=== PATIENT | female | born 2000 | race Caucasian/White ===

== ENCOUNTER → 2023-05-14 13:48 | Outpatient (CLI) | payer BC, SELFPAY ==
--- NOTE | ~2023-05-14 | US_ITS ---
EXAMINATION: US thyroid DATE: 05/14/2023 14:12 INDICATION: TECHNIQUE: Multiple ultrasound images of the thyroid were obtained. COMPARISON: None. FINDINGS: The right thyroid lobe measures 5.0 x 1.8 x 1.3 cm. The left thyroid lobe measures 5.1 x 1.4 x 1.2 c m. The isthmus measures 0.2 cm. There is normal echotexture and echogenicity throughout the thyroid g land. No discrete nodules identified. Normal vascular flow is present. IMPRESSION: Normal thyroid ultrasound findings. Reviewed, dictated and finalized at location K.
== END ==
PROVIDERS: PCP Family Medicine; Visit Provider Physician Assistant
DX: E04.9 Nontoxic goiter, unspecified (principal)
CPT/HCPCS: 76536

== ENCOUNTER 2023-05-15 18:16 | Emergency (ER) | payer BC, SELFPAY ==
--- NOTE | 2023-05-15 18:20 | ED.EYEPROB ---
HPI - Eye Problem General Chief complaint: Eye Problems Stated complaint: bilateral eye pain Time Seen by Provider: 05/15/23 18:19 Source: patient Mode of arrival: ambulatory Limitations: no limitations History of Present Illness HPI Narrative: Adina is a 23-year-old female patient presenting to the clinic today with complaints of bilateral eye discomfort. She reports she has had some clear drainage coming from bilateral eyes today however when she wakes up the morning the drainage is yellow. Symptoms have been going on for 2 days. She does wear contacts. She has taken her contacts out and now is wearing her glasses. She denies any visual changes but does have photosensitivity. Related Data Home Medications Medication Instructions Recorded Confirmed medroxyprogesterone 400 mg/mL 400 mg IM MONTHLY 06/06/19 05/15/23 intramuscular suspension (Depo-Provera) Allergies Allergy/AdvReac Type Severity Reaction Status Date / Time No Known Allergies Allergy Verified 05/15/23 18:21 Review of Systems Review of Systems: Pertinent positives per HPI. Patient denies any fever, chills, rash, headache, visual changes, dizziness, cough, runny nose, sore throat, shortness of breath, chest pain, palpitations, nausea, vomiting, diarrhea, constipation, abdominal pain, or any urinary issues. FORMERLY [facility], [facility] Past Medical History Medical History ADD (attention deficit disorder) without hyperactivity Insomnia Major depressive disorder, recurrent, moderate Family History Family History Mother Depression Social History Social History Social History: Single Smoking status: Never smoker Second hand tobacco smoke exposure: No Alcohol intake: current Drinks per week: 2 Substance use: current Substance use type: marijuana Lack of Transportation: No Lack of Food: Never True Current Housing: I Have Housing Concerned About Future Housing: No Difficulty Paying Gas/Electric Bills: No Difficulty Paying for Meds: No Currently Unemployed: No Education: Decline to Answer Living arrangements: with family Occupation/Education: student Additional occupation/education comments: Pt also goes to school. Gender identity (if verbalized by the patient): Female Sexual Orientation (if Verbalized by the Patient): Straight or Heterosexual Comments At the time of my signature, I reviewed and agree with the nursing past medical, surgical, social, and family history. There is no relevant family history pertinent to the patient complaint. Exam Narrative: General: Well-developed, well nourished, in no apparent distress Head: Normocephalic, atraumatic Eyes: Pupils equally round and reactive to light bilaterally, EOM intact, sclera and conjunctive injected, watery discharge, bilateral lid swelling left greater than right Ears: TMs intact and clear, ear canals clear, no drainage, grossly hearing normal. Nose: Nares patent, no discharge, no inflammation, no sinus tenderness. Mouth: Oropharynx without lesions or masses, good dentition, MMM. Neck: Supple, trachea midline, no enlargement of anterior or posterior cervical nodes, no thyroid masses or goiter palpable. Cardio: Regular rate and rhythm, s1 and s2 normal, no murmur appreciated. Resp: Clear to auscultation bilaterally anteriorly and posteriorly, no rhonchi, rales, wheezing or rubs Course Course Emergency Course: Portions of this record may have been created with voice recognition software. Level of Care: Express Care Visit Vital Signs Vital signs: Vital signs reviewed MDM - Eye Problem MDM Narrative Medical decision making narrative: At the time of visit patient is resting comfortably on exam table. I suspect patient has likely viral conjunctivitis however cannot rule o
[2023-05-15 18:29] VITALS: BP 133/80; PULSE 77; RESP 20; TEMP 36.1; O2SAT 99
== END 2023-05-15 18:35 | disposition home or self-care (01) ==
PROVIDERS: Emergency Provider Nurse Practitioner Family; PCP Family Medicine
DX: B30.9 Viral conjunctivitis, unspecified (principal); F90.9 Attention-deficit hyperactivity disorder, unspecified type
CPT/HCPCS: 99213; G0463

== ENCOUNTER 2024-09-03 09:24 | Outpatient (CLI) | payer BC, SELFPAY ==
--- OUTSIDE RECORDS SUMMARY | 2024-09-03 10:01 | XMS_ITS | Clinical Summary ---
Author Organization [facility] Address [address] [place] [address] Phone Care Team Providers Care Digital Controls Technical Officer Name Role Phone Angeline Pack MD Primary Care Provider [phone] Allergies No known active allergies Medications FLUoxetine (PROzac) 20 mg capsule Take 1 Capsule (20 mg) by mouth daily. 30 Capsule 4 11/30/2021 1:52 PM CDT 12/21/2020 Active traZODone (DESYREL) 50 mg tablet Take 1 Tablet (50 mg) by mouth daily. 90 Tablet 1 05/21/2021 11:06 AM CDT 05/18/2021 Active traZODone (DESYREL) 50 mg tablet Take 1 Tablet (50 mg) by mouth daily. 90 Tablet 1 06/22/2021 Active Active Problems Problem Noted Date Diagnosed Date Chlamydia infection 11/20/2018 Depression with anxiety 10/14/2018 Psychophysiological insomnia 10/14/2018 Encounters Date Type Department Care Team Description 08/19/2024 External Device Data [facility] ABSTRACTION Provider, Abstract 08/13/2024 External Device Data [facility] ABSTRACTION Provider, Abstract 08/12/2024 External Device Data [facility] ABSTRACTION Provider, Abstract from Last 3 Months Family History Medical History Relation Name Comments Healthy Father Raymundo Dwyer Healthy Mother Kajal Bermudez Coronary Artery Disease Other clos e relative Hypertension Other close relative Relation Name Status Comments Father Raymundo Dwyer Alive Mother Kajal Bermudez Other Social History Tobacco Use Types Packs/Day Years Used Date Smoking Tobacco: Never Smokeless Tobacco: Never Tobacco Cessation:Counseling Given: Not Answered Alcohol Use Standard Drinks/Week Comments Yes 0 (1 standard drink = 0.6 oz pur e alcohol) Comments No Sex and Gender Information Value Date Recorded Sex Assigned at Female 05/16/2023 12:18 AM CDT Legal Sex Female 9:39 PM CDT Gender Identity Female 05/16/2023 12:18 AM CDT Sexual Orientation Not on file Last Filed Vital Signs Vital Sign Reading Time Taken Comments Blood Pressure 120/80 10/04/2023 2:11 PM CDT Pulse 88 11/20/2018 10:01 AM CDT Temperature 37.1 C (98.8 F) 12/09/2020 2:50 PM CDT Respiratory Rate 16 12/09/2020 2:50 PM CDT Oxygen Saturation - - Inhaled Oxygen Concentration - - Weight 102.5 kg (226 lb) 10/04/2023 2:11 PM CDT Height 167.6 cm (5' 6 ) 10/04/2023 2:11 PM CDT Body Mass Index 36.48 10/04/2023 2:11 PM CDT Plan of Treatment Health Maintenance Due Date Last Done Comments HPV VACCINES (1 - 3-dose series) 2013 DTAP/TDAP/TD VACCINES (1 - Tdap) 2017 HEPATITIS B VACCINES (1 of 3 - 19+ 3-dose series) 2017 INFLUENZA VACCINE (#1) 2024 CERVICAL CANCER SCREENING 06/06/20262022, 03/28/2022, 12/09/2020, Additional history exists CHLAMYDIA SCREENING (ANNUAL) 11-24 YEARS Discontinued 12/09/2020, 09/12/2019, 11/20/2018, Additional history exists PNEUMOCOCCAL VACCINE 0-64 YEARS Aged Out No longer eligible based on patient's age to complete this topic Procedures Procedure Name Priority Date/Time Associated Diagnosis Comments CERV/VAG CYTO SCREEN PAP W/HPV Routine 06/06/2023 2:52 PM TALENT ACQUISITION ASSOCIATE Well woman exam with routine gynecological exam CHLAMYDIA AND GC, PAP VIAL Routine 12/09/2020 3:17 PM CDT Encounter for gynecological examination without abnormal finding LGSIL on Pap smear of cervix from Last 3 Months or Most Recently Relevant to Health Maintenance Results * (ABNORMAL) CERV/VAG CYTO SCREEN PAP W/HPV (06/06/2023 2:52 PM TALENT ACQUISITION ASSOCIATE) CLINICAL INFORMATION [facility] [place] Comment:None given LAST MENSTRUAL PERIOD [facility] [place] Comment:NONE GIVEN PREV PAP: [facility] [place] Comment:NONE GIVEN PREV BX: [facility] [place] Comment:NONE GIVEN SOURCE [facility] [place] Comment:Endocervix ADEQUACY: [facility] [place] Comment: Satisfactory for evaluation. Endocervical/transformation zone component present. Age and/or menstrual status not provided GENERAL CATEGORIZATION: (A) [facility] [place] Comment:Cytology Results: Ep ithelial Cell Abnormality PAP INTERP (A) [facility] [place] Comment: Atypical Squamous Cells of Undetermined Significance (ASC-US) COMMENT (PAP TEST) Q [facility]est [facility] [place] [facility] [place] Comment: This Pap test has been evaluated with computer assisted technology. Suggest clinical correlation and follow-up as clinically appropriate FISHING CAPTAIN: Deanna Garcia Comment: ROD, CT(ASCP) CT screening location: [place] [address] [place] [address] PATHOLOGIST [facility] Comment: Suhail Lao M.D., Board Certified in Anatomic Pathology and Cytopathology. (electronic signature) EXPLANATORY NOTE [facility] [place] Comment: EXPLANATORY NOTE: The Pap is a screening test for cervical cancer. It is not a diagnostic test and is subject to false negative and false positive results. It is most reliable when a satisfactory sample, regularly obtained, is submitted with relevant clinical findings and history, and when the Pap result is evaluated along with historic and current clinical information. HPV E6/E7 Detected( A) Not Detected [facility] [place] Comment: Methodology: Audit Specialist-Mediated Amplification This assay detects E6/E7 viral messenger RNA (mRNA) from 14 high-risk HPV types (16,18,31,33,35,39,45,51,52,56,58,59,66,68). Cervical sources are required for HPV testing. If a vaginal source from a patient who has had a total hysterectomy with removal of cervix was submitted, please contact the testing laboratory for alternative testing options. For additional information, please refer to http://education.Portfolium/faq/NSW950n7 (This link if provided for information/ educational purposes only.) Test Performed at: [facility] [address] [place] [address] Jennifer Jaquez MD Genital SWAB OF ENDOCERVIX / Unknown 06/06/2023 2:52 PM TALENT ACQUISITION ASSOCIATE 06/07/2023 2:22 AM TALENT ACQUISITION ASSOCIATE Angeline Pack MD PATHOLOGY/CYTOLOGY ORDERABLES Final Result Performing Organization Address City/[facility]/ZIP Co de Phone Number [facility] [address] [phone] [facility] [address] [place] [address] * CHLAMYDIA AND GC, PAP VIAL (12/09/2020 3:17 PM CDT) CHLAMYDIA DNA AMPLIFICATION NOT DETECTED Not Detected 12/11/2020 2:21 PM CDT [facility] GC DNA AMPLIFICATION NOT DETECTED Not Detected 12/11/2020 2:21 PM CDT [facility] Genital SWAB OF ENDOCERVIX / Unknown Collection / Unknown 12/09/2020 3:17 PM CDT 12/11/2020 7:14 AM CDT Angeline Pack MD BODY FLUIDS AND STOOLS COM Fin al Result Performing Organization Address City/[facility] Co de Phone Number [facility] CLIA# [id number] [place] [address] from Last 3 Months or Most Recently Relevant to Health Maintenance Insurance RX IZAGUIRRE PLANS (INTERNAL) [facility] Plans RX [facility] Caremark [facility] BLUE ACCESS/TRUE BLUE PPO Care Teams Digital Controls Technical Officer Relationship Specialty Start Date End Date Angeline Pack MD [address] [place] [id number] PCP - General Obstetrics and Gynecology 06/11/18
--- OUTSIDE RECORDS SUMMARY | 2024-09-03 10:01 | XMS_ITS | Clinical Summary ---
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 Gender Identity Not on file Sexual Orientation Not on file Plan of Treatment Health Maintenance Due Date Last Done Comments Hepatitis C Virus (HCV) Screening 1998 TdaP Immunization 1998 Human Papillomavirus (HPV) Immunization (1 - 3-dose series) 2013 Hepatitis B Immunization (1 of 3 - 19+ 3-dose series) 2017 Pap Smear 2019 Influenza Immunization (#1) 2024 SARS-COV-2 Immunization ( season) 2024 Respiratory Syncytial Virus (RSV) Immunization (Adult) (1 - 1-dose 75+ series) 2073 Meningococcal Immunization (ACWY) Aged Out No longer eligible based on patient's age to complete this topic Pneumococcal Immunization Combined Aged Out No longer eligible based on patient's age to complete this topic Rotavirus Immunization Aged Out No lo nger eligible based on patient's age to complete this topic
[2024-09-03 11:28] LABS: Trichomonas Vag PCR NOT DETECTED (NOT DETECTE)
[2024-09-03 11:51] LABS: Chlamydia trachomatis NOT DETECTED (NOT DETECTE); Neisseria gonorrhoeae PCR NOT DETECTED (NOT DETECTE)
== END 2024-09-03 09:25 | disposition home or self-care (01) ==
LOC: ANHLAB 09:25
PROVIDERS: PCP Family Medicine; Visit Provider Student in an Organized Health Care Education/Training Program
DX: Z72.51 High risk heterosexual behavior (principal)
CPT/HCPCS: 87491; 87591; 87661

== ENCOUNTER 2025-01-26 16:12 | Outpatient (CLI) | payer BC, SELFPAY ==
--- OUTSIDE RECORDS SUMMARY | 2025-01-26 16:16 | XMS_ITS | Clinical Summary ---
Author Organization [facility] Address [address] [place] [address] Phone Care Team Providers Care Nursing Home Aide Name Role Phone Angeline Pack MD Primary Care Provider [phone] Allergies No known active allergies Medications FLUoxetine [...] Depression with anxiety 10/14/2018 Psychophysiological insomnia 10/14/2018 Family History Medical History Relation Name Comments Healthy Father Raymundo Ball Healthy Mother Kajal Bermudez Coronary Artery Disease Other clos e relative Hypertension Other close relative Relation Name Status Comments Father Raymundo Ball Alive Mother Kajal Bermudez Other Social History [...] 2:11 PM CDT Height 167.6 cm (5' 6) 10/04/2023 2:11 PM CDT Body Mass Index 36.48 10/04/2023 2:11 PM CDT Plan of Treatment Health Maintenance Due Date Last Done Comments HPV VACCINES (1 - 3-dose series) 2013 DTAP/TDAP/TD VACCINES (1 - Tdap) 2017 HEPATITIS B VACCINES (1 of 3 - 19+ 3-dose series) 2017 INFLUENZA VACCINE (#1) 2025 CERVICAL CANCER SCREENING 06/06/2026 PAP SMEAR 06/06/2026 06/06/2023, 09/0 12/2021, 12/09/2020, Additional history exists HPV/Cotest (21-29) 06/06/2028 06/06/2023, 03/28/2022 HPV/Cotest (30-65) 06/06/2028 06/06/2023, 03/28/2022 CHLAMYDIA SCREENING (ANNUAL) 11-24 YEARS Discontinued 12/09/2020, 09/12/2019, 11/20/2018, Additional history exists Procedures Procedure Name Priority Date/Time Associated Diagnosis Comments CERV/VAG CYTO SCREEN PAP W/HPV Routine 06/06/2023 2:52 PM BOOTH USHER Well woman exam with routine gynecological exam CHLAMYDIA AND GC, PAP VIAL Routine 12/09/2020 3:17 PM CDT Encounter for gynecological examination without abnormal finding LGSIL on Pap smear of cervix from Last 3 Months or Most Recently Relevant to Health Maintenance Results * (ABNORMAL) CERV/VAG CYTO SCREEN PAP W/HPV (06/06/2023 2:52 PM BOOTH USHER) CLINICAL INFORMATION [facility] [place] Comment:None given LAST MENSTRUAL PERIOD [facility] [place] Comment:NONE GIVEN PREV PAP: [facility] [place] Comment:NONE GIVEN PREV BX: [facility] [place] Comment:NONE GIVEN SOURCE [facility] [place] Comment:Endocervix ADEQUACY: [facility] [place] Comment: Satisfactory for evaluation. Endocervical/transformation zone component present. Age and/or menstrual status not provided GENERAL CATEGORIZATION: (A) [facility] [place] Comment:Cytology Results: Ep ithelial Cell Abnormality PAP INTERP (A) [facility] [place] Comment: Atypical Squamous Cells of Undetermined Significance (ASC-US) COMMENT (PAP TEST) Q uest [facility] [place] Comment: This Pap test has been evaluated with computer assisted technology. Suggest clinical correlation and follow-up as clinically appropriate WOOL PULLER: Deanna em [facility] [place] Comment: ROD, CT(ASCP) CT screening location: [place] [address] [place] [address] PATHOLOGIST [facility] [place] Comment: Suhail Lao M.D., Board Certified in Anatomic Pathology and Cytopathology. (electronic signature) EXPLANATORY NOTE Que [facility] [place] Comment: EXPLANATORY NOTE: The Pap is a [...] information. HPV E6/E7 Detected( A) Not Detected [facility] [place] Comment: Methodology: Box Coverer Hand-Mediated Amplification This assay detects E6/E7 viral messenger RNA (mRNA) from 14 high-risk HPV types (16,18,31,33,35,39,45,51,52,56,58,59,66,68). Cervical sources are required for HPV testing. If a vaginal source from a patient who has had a total hysterectomy with removal of cervix was submitted, please contact the testing laboratory for alternative testing options. For additional information, please refer to http://education.FreakOut/faq/OJE916s5 (This link if provided for information/ educational purposes only.) Test Performed at: [facility] [address] [place] [address] Jennifer Jaquez MD Genital SWAB OF ENDOCERVIX / Unknown 06/06/2023 2:52 PM BOOTH USHER 06/07/2023 2:22 AM BOOTH USHER Angeline Pack MD PATHOLOGY/CYTOLOGY ORDERABLES Final Result [facility] [phone] [facility] [place] [address] [facility] [place] [address] * CHLAMYDIA AND GC, PAP VIAL (12/09/2020 3:17 PM CDT) CHLAMYDIA DNA AMPLIFICATION NOT DETECTED Not Detected 12/11/2020 2:21 PM CDT [facility] GC DNA AMPLIFICATION NOT DETECTED Not Detected 12/11/2020 2:21 PM CDT [facility] Genital SWAB OF ENDOCERVIX / Unknown Collection / Unknown 12/09/2020 3:17 PM CDT 12/11/2020 7:14 AM CDT Angeline Pack MD BODY FLUIDS AND STOOLS COM Fin al Result [facility] CLIA# [id number] [place] [address] from Last 3 Months or Most Recently Relevant to Health Maintenance Insurance RX IZAGUIRRE PLANS (INTERNAL) [facility] RX [facility]mark [facility] BLUE OPTIONS Care Teams Nursing Home Aide Relationship Specialty Start Date End [place] [id number] [place] [phone] PCP - General Obstetrics and Gynecology 06/11/18
--- OUTSIDE RECORDS SUMMARY | 2025-01-26 16:16 | XMS_ITS | Clinical Summary ---
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
[2025-01-26 17:24] LABS: Syphilis IgG/IgM Antibody Non-Reactive (Nonreactive)
[2025-01-26 17:48] LABS: HIV 1/2 Ab P24 Ag Result Negative (Negative)
[2025-01-30 16:42] LABS: Herpes Simplex Type 1 DNA PCR Not Detected (Not Detected); Herpes Simplex Type 2 DNA PCR Not Detected (Not Detected)
== END 2025-01-26 16:13 | disposition home or self-care (01) ==
LOC: ANHLAB 16:13
PROVIDERS: PCP Family Medicine; Visit Provider Physician Assistant Medical
DX: Z72.51 High risk heterosexual behavior (principal); Z20.828 Contact with and (suspected) exposure to other viral communicable diseases
CPT/HCPCS: 36415; 86593; 86703; 86803; 87491; 87529; 87591; G0432